=== PATIENT | female | born 1955 | race Caucasian/White ===

== ENCOUNTER 2023-06-29 11:54 | Emergency (ER) | payer MEDICARE, OTHER, SELFPAY ==
[2023-06-29] VITALS (7 sets, daily range): BP systolic 94–129; BP diastolic 55–84; BMI 31.1
[2023-06-29 12:35] LABS: % Basophils 0.3 % (0-2); % Immature Granulocytes 0.3 % (0-0.5); % Lymphocytes 5.3 % (20.5-51.1); % Monocytes 8.3 % (1.7-9.3); % Neutrophils 85.8 % (42.2-75.2); Absolute Lymphocytes 0.4 10^3/uL (1.2-3.4); Absolute Monocytes 0.6 10^3/uL (0.1-0.6); Absolute Neutrophils 6.6 10^3/uL (1.4-6.5); Hemoglobin 15.6 g/dL (12.0-16.0); Mean Corp Hgb Conc. 36.3 g/dL (33.0-37.0); Mean Corpuscular Volume 88.3 fL (81.0-99.0); Mean Platelet Volume 10.7 fL (7.4-10.4); Nucleated Red Blood Cells % 0 %; Platelet Count 165 10^3/uL (130-400); Red Blood Cell Count 4.87 10^6/uL (4.20-5.40); Red Cell Dist. Width 14.2 % (11.5-14.5); White Blood Cell Count 7.7 10^3/uL (4.8-10.8)
[2023-06-29 12:53] LABS: ALT (SGPT) 33 U/L (0-35); AST (SGOT) 38 U/L (14-36); Albumin 4.4 g/dl (3.5-5.0); Alkaline Phosphatase 66 U/L (38-126); Blood Urea Nitrogen 33 mg/dl (7-17); Calcium 9.1 mg/dl (8.4-10.2); Carbon Dioxide 20 mmol/L (22-30); Chloride 105 mmol/L (98-107); Glucose 113 mg/dl (70-99); Lipase 44 U/L (23-300); Potassium 4.1 mmol/L (3.5-5.1); Sodium 133 mmol/L (135-145); Total Protein 7.4 g/dl (6.3-8.2); eGFR > 60.00
[2023-06-29] MEDS: NSS 1000 IV ×2 (13:39→16:09)
[2023-06-29] MEDS: ZOFRAN 4 MG IV (15:23)
--- NOTE | 2023-06-29 16:03 | ED.GENMED ---
History of Present Illness
General
Chief Complaint: Abdominal Symptoms
Source: patient and spouse
Time Seen by Provider: 06/29/23 13:20
Travel History
Have you had any contact with someone who has COVID-19?: No
Do you have any symptoms of coronavirus? Fever > 100 degrees, chills, cough, shortness of breath, sore throat, loss of taste or smell, muscle aches, or headache?: No
History of Present Illness
History of Present Illness:
24 plus hours of recurrent vomiting/diarrhea. no abd pain. low grade fever the day before. no fever the morning of ED evaluation. No blood or mucus. Feels different than her UC. No unusual food,travel, or recent antibiotics.
Past History
Past History
ED Past Medical History: Other (ezcema, ulcers colitis)
ED Past Surgical History: None
Social History
Tobacco: Non-smoker
Alcohol: None
Drug: None
Personal:
Living: with family
Employment: Employed (RN here)
Family History
Family History: Other and Unable to obtain
Review of Systems
Review of Systems
Constitutional: Reports fever
Cardiac: Reports no symptoms
Phy Exam
Physical Exam
Physical Exam:
alert ox3
NAD
warm dry
lungs clear
heart rrr neg M
abdomen soft BS present NT
ext warm dry. perfusing well
Course
Orders/Labs/Results
Orders:
Orders
06/29/23 12:27
Complete Blood Count/With Diff Urgent
Comprehensive Metabolic Panel Urgent
Erythrocyte Sed Rate Urgent
Comment: ADD ON
Lipase Urgent
06/29/23 13:33
0.9% Sodium Chloride 1000 ml [Nss] 1,000 ml IV BOLUS
06/29/23 14:42
EKG [Electrocardiogram (*1)] Urgent
Reason for Study: QTc Monitoring
EKG- Treatment ONCE
06/29/23 14:54
Add On- LAB Urgent
Tests Added?: crp/esr
06/29/23 15:03
Calprotectin, Fecal [S] Urgent
Date Specimen was Collected: 06/29/23
Time Specimen was Collected: 14:55
STOOL [C difficile Antigen & Toxins] Urgent
AMBREEN Source: Feces/Stool
Specimen Description:
Date Specimen was Collected: 06/29/23
Time Specimen was Collected: 14:55
Stool Culture Urgent
AMBREEN Source: Feces/Stool
Specimen Description:
Date Specimen was Collected: 06/29/23
Time Specimen was Collected: 14:55
06/29/23 15:06
Ondansetron Injectable [Zofran] 4 mg IV NOW STA
06/29/23 16:06
0.9% Sodium Chloride 1000 ml [Nss] 1,000 ml IV BOLUS
06/29/23 16:19
C-Reactive Protein Urgent
Comment: COLLECT. CANNOT ADD. INSTRUMENT PROBLEMS.
Abnormal Lab Results
06/29/23 06/29/23
12:27 16:19
MCH 32.0 H pg
(27.0-31.0)
MPV 10.7 H fL
(7.4-10.4)
Absolute Neuts (auto) 6.6 H 10^3/uL
(1.4-6.5)
Absolute Lymphs (auto) 0.4 L 10^3/uL
(1.2-3.4)
Neutrophils % 85.8 H %
(42.2-75.2)
Lymphocytes % 5.3 L %
(20.5-51.1)
Sodium 133 L mmol/L
(135-145)
Carbon Dioxide 20 L mmol/L
(22-30)
BUN 33 H mg/dl
(7-17)
Glucose 113 H mg/dl
(70-99)
AST 38 H U/L
(14-36)
C-Reactive Protein 51.50 H mg/L
(0.0-10.00)
06/29/23 12:27
06/29/23 12:27
Vital Signs
Initial and Last Documented VS:
Initial Vital Signs
Temp Pulse Resp BP Pulse Ox
98.6 F 86 16 124/84 98
06/29/23 12:15 06/29/23 12:15 06/29/23 12:15 06/29/23 12:15 06/29/23 12:15
Last Documented Vital Signs
Temp Pulse Resp BP Pulse Ox
98.6 F 67 15 105/60 95
06/29/23 12:15 06/29/23 18:50 06/29/23 18:50 06/29/23 18:00 06/29/23 18:50
MDM/Problems Addressed
Differential Diagnosis Includes:
care reviewed with GI. they asked for esr/crp and are aware of results. Prior to d/c patient felt well, was keeping liguids down and nontxoc. offered admission but pt. comfortable with OP f/u.
*Radiology
Radiology exam reviewed: radiology read reviewed
*Pulse Oximetry
Patient hypoxic: no
*EKG
Interpretation: abnormal
Comparison EKG: no comparison EKG present
Heart Rate: 65
Rate: normal
Rhythm: sinus
[place]: left axis deviation
QRS Pattern: poor R-wave progression
Ischemia: T-wave inversion
*Critical Care Note
Total Time (30-74mins, 75-104mins- exclusive of procedures): Not Applicable
ED Attending Note
-
Portions of this chart may have been created with voice recognition software.� Occasional wrong word or��sound alike� substitutions may have occurred due to the inherent limitations of voice recognition software.
Discharge Plan
Departure
Patient Disposition: Home (Routine Discharge)
Date of Disposition: 06/29/23
Time of Disposition: 18:45
Patient with high blood pressure during this ER visit?: No
Condition: Good
Discharge Problem:
Enteritis, History of colitis
Instructions: Diarrhea in adolescents and adults, Constipation, Adult (DC), Nausea and Vomiting, Adult (DC)
Prescriptions:
New
ondansetron 4 mg tablet,disintegrating
4 mg PO TIDPRN PRN (Reason: nausea/vomiting) Qty: 14 0RF
No Action
cholecalciferol (vitamin D3) [Vitamin D3] 1,000 UNIT capsule
1,000 unit PO DAILY
mesalamine [Lialda] 1.2 GM tablet,delayed release (DR/EC)
4 tab PO HS
escitalopram oxalate 5 MG tablet
5 mg PO HS
acetaminophen [Tylenol Extra Strength] 500 MG tablet
500 mg PO Q4HPRN PRN (Reason: PRE TREATMENT)
famotidine [Pepcid] 20 mg Tablet
20 mg PO HS
prednisone 20 mg Tablet
20 mg PO DAILY
Benefiber (wheat dextrin) 1 gram Tablet
1 g PO DAILY
Referrals:
Shannan Boggs MD [Active] - Follow up in 5-7 days
Tiana Davis MD [Family Provider] - Follow up in 2-3 days
Activity Restrictions/Additional Instructions:
Light diet the next 1 to 2 days
Zofran as needed for nausea
Recheck if symptoms have not resolved in 1 to 2 days, increase symptoms, abdominal pain, fever, bloody stool or any other concerning symptoms
Interventions
Interventions:
*Risk Screen - Suicide Last Done: 06/29/23 13:38
*General Assessment Last Done: 06/29/23 13:38
*Neglect/Abuse Screening Last Done: 06/29/23 13:38
ED- Fall Risk Assessment Last Done: 06/29/23 13:38
*ED COVID-19 Vaccine History Last Done: 06/29/23 12:15
*Nursing Disposition Last Done: 06/29/23 18:54
WN-Sfakos-Ecigggcekq Assessment Last Done: 06/29/23 13:38
Discharge Date and Time
Discharge Date/Time: 06/29/23 18:54
[2023-06-29 16:56] LABS: Erythrocyte Sed Rate 11 mm/hour (0-20)
[2023-07-02 21:02] LABS: Calprotectin, Fecal 494 ug/g (<=49)
== END 2023-06-29 18:54 | disposition home or self-care (01) ==
LOC: EMR 11:54
PROVIDERS: Emergency Medicine; EMERGENCY PHYSICIAN Emergency Medicine; FAMILY PHYSICIAN Internal Medicine
DX: K52.9 Noninfective gastroenteritis and colitis, unspecified (principal)
CPT/HCPCS: 99283; 96374; 96361; 80053; 83690; 83993; 85025; 85652; 86140; 87045; 87046; 87077; 87324; 87427; 87449; 93005

== ENCOUNTER → 2023-08-14 10:47 | Outpatient (REF) | payer MEDICARE, OTHER, SELFPAY ==
[2023-08-14 12:09] LABS: % Basophils 0.9 % (0-2); % Immature Granulocytes 0.2 % (0-0.5); % Lymphocytes 28.2 % (20.5-51.1); % Neutrophils 59.7 % (42.2-75.2); Absolute Basophils 0.1 10^3/uL (0-0.2); Absolute Eosinophils 0.1 10^3/uL (0-0.7); Absolute Lymphocytes 1.6 10^3/uL (1.2-3.4); Absolute Monocytes 0.6 10^3/uL (0.1-0.6); Absolute Neutrophils 3.5 10^3/uL (1.4-6.5); Hematocrit 39.9 % (37.0-47.0); Hemoglobin 13.8 g/dL (12.0-16.0); Mean Corp Hgb Conc. 34.6 g/dL (33.0-37.0); Mean Corpuscular Hgb 31.7 pg (27.0-31.0); Mean Corpuscular Volume 91.7 fL (81.0-99.0); Mean Platelet Volume 10.8 fL (7.4-10.4); Nucleated Red Blood Cells % 0 %; Platelet Count 229 10^3/uL (130-400); Red Blood Cell Count 4.35 10^6/uL (4.20-5.40); Red Cell Dist. Width 14.2 % (11.5-14.5); White Blood Cell Count 5.8 10^3/uL (4.8-10.8)
[2023-08-14 12:16] LABS: Erythrocyte Sed Rate 22 mm/hour (0-20)
[2023-08-14 12:47] LABS: CRP, Highly Sensitive 1.75 mg/L
[2023-08-14 12:51] LABS: ALT (SGPT) 34 U/L (0-35); AST (SGOT) 33 U/L (14-36); Albumin 4.3 g/dl (3.5-5.0); Alkaline Phosphatase 68 U/L (38-126); Blood Urea Nitrogen 26 mg/dl (7-17); Calcium 9.6 mg/dl (8.4-10.2); Carbon Dioxide 27 mmol/L (22-30); Chloride 106 mmol/L (98-107); Glucose 82 mg/dl (70-99); HDL Cholesterol 62 mg/dl; LDL Cholesterol, Calculated 184 mg/dl; Potassium 4.4 mmol/L (3.5-5.1); Sodium 138 mmol/L (135-145); Total Bilirubin 0.7 mg/dl (0.2-1.3); Total Cholesterol 287 mg/dl (50-199); Triglyceride 207 mg/dl (10-149); Very Low Density Lipoprotein 41 mg/dl (0-30); eGFR > 60.00
[2023-08-14 12:59] LABS: Vitamin D, 25-OH*** 41.2 ng/mL (30-80)
[2023-08-14 13:13] LABS: TSH Reflex To Free T4 0.87 uIU/ml (0.47-4.68)
== END ==
LOC: REG 10:47
PROVIDERS: ATTENDING PHYSICIAN Internal Medicine Rheumatology; FAMILY PHYSICIAN Internal Medicine; REFERRING PHYSICIAN Internal Medicine Gastroenterology
DX: D47.2 Monoclonal gammopathy (principal); E55.9 Vitamin D deficiency, unspecified; K51.90 Ulcerative colitis, unspecified, without complications; M06.00 Rheumatoid arthritis without rheumatoid factor, unspecified site; M07.60 Enteropathic arthropathies, unspecified site; M25.462 Effusion, left knee; M25.562 Pain in left knee; M35.3 Polymyalgia rheumatica; M85.80 Other specified disorders of bone density and structure, unspecified site; S83.207S Unspecified tear of unspecified meniscus, current injury, left knee, sequela; Z68.31 Body mass index [BMI] 31.0-31.9, adult; Z79.899 Other long term (current) drug therapy; E78.00 Pure hypercholesterolemia, unspecified; R53.83 Other fatigue; Z51.81 Encounter for therapeutic drug level monitoring
CPT/HCPCS: 36415; 80053; 80061; 82306; 84443; 85025; 85652; 86141

== ENCOUNTER → 2023-09-17 10:42 | Outpatient (REF) | payer MEDICARE, OTHER, SELFPAY | LOC: RAD 10:42 | PROVIDERS: ATTENDING PHYSICIAN Internal Medicine | DX: E78.00 Pure hypercholesterolemia, unspecified (principal) | CPT/HCPCS: 75571; 83993 ==

== ENCOUNTER → 2023-11-09 07:38 | Outpatient (REF) | payer MEDICARE, OTHER, SELFPAY ==
[2023-11-09 08:58] LABS: % Basophils 1.1 % (0-2); % Eosinophils 2.3 % (0-6); % Immature Granulocytes 0.3 % (0-0.5); % Lymphocytes 19.1 % (20.5-51.1); % Monocytes 10.6 % (1.7-9.3); % Neutrophils 66.6 % (42.2-75.2); Absolute Basophils 0.1 10^3/uL (0-0.2); Absolute Eosinophils 0.2 10^3/uL (0-0.7); Absolute Lymphocytes 1.3 10^3/uL (1.2-3.4); Absolute Monocytes 0.7 10^3/uL (0.1-0.6); Absolute Neutrophils 4.4 10^3/uL (1.4-6.5); Hematocrit 38.2 % (37.0-47.0); Hemoglobin 13.1 g/dL (12.0-16.0); Mean Corp Hgb Conc. 34.3 g/dL (33.0-37.0); Mean Corpuscular Hgb 31.3 pg (27.0-31.0); Mean Corpuscular Volume 91.4 fL (81.0-99.0); Mean Platelet Volume 11.1 fL (7.4-10.4); Nucleated Red Blood Cells % 0 %; Platelet Count 215 10^3/uL (130-400); Red Blood Cell Count 4.18 10^6/uL (4.20-5.40); Red Cell Dist. Width 12.9 % (11.5-14.5); White Blood Cell Count 6.6 10^3/uL (4.8-10.8)
[2023-11-09 09:30] LABS: AST (SGOT) 28 U/L (14-36); Albumin 4.2 g/dl (3.5-5.0); Blood Urea Nitrogen 28 mg/dl (7-17); Calcium 9.5 mg/dl (8.4-10.2); Carbon Dioxide 27 mmol/L (22-30); Chloride 106 mmol/L (98-107); Glucose 86 mg/dl (70-99); Potassium 4.4 mmol/L (3.5-5.1); Sodium 140 mmol/L (135-145); Total Bilirubin 0.7 mg/dl (0.2-1.3); Total Protein 6.7 g/dl (6.3-8.2); eGFR > 60.00
[2023-11-09 09:40] LABS: ALT (SGPT) 26 U/L (0-35); Alkaline Phosphatase 80 U/L (38-126); Iron 76 ug/dl (37-170); Percent Saturation 27 % (20-50); Total Iron Binding Capacity 280 ug/dl (265-497)
[2023-11-09 10:23] LABS: Erythrocyte Sed Rate 33 mm/hour (0-20)
[2023-11-11 11:08] LABS: Albumin 4.18 g/dL (3.75-5.01); Alpha 1 Globulin 0.25 g/dL (0.19-0.46); Alpha 2 Globulin 0.69 g/dL (0.48-1.05); Free Kappa Light Chains,Quant 26.25 mg/L (3.30-19.40); Free Lambda Light Chains,Quant 11.07 mg/L (5.71-26.30); IgA 102 mg/dL (68-408); IgG 804 mg/dL (768-1632); IgM 435 mg/dL (35-263); Immunofixation Electrophoresis IFE Done; Kappa/Lambda Fr Light Ratio 2.37 (0.26-1.65); Total Protein-Electrophoresis 6.8 g/dL (6.3-8.2)
== END ==
LOC: REG 07:38
PROVIDERS: ATTENDING PHYSICIAN Internal Medicine Hematology & Oncology; FAMILY PHYSICIAN Internal Medicine Rheumatology; OTHER PHYSICIAN Internal Medicine Gastroenterology; REFERRING PHYSICIAN Internal Medicine
DX: K51.90 Ulcerative colitis, unspecified, without complications (principal); M06.00 Rheumatoid arthritis without rheumatoid factor, unspecified site; M35.3 Polymyalgia rheumatica; D47.2 Monoclonal gammopathy; D50.9 Iron deficiency anemia, unspecified
CPT/HCPCS: 36415; 80053; 82728; 82784; 83521; 83540; 83550; 84155; 84165; 85025; 85652; 86140; 86334

== ENCOUNTER → 2023-11-20 15:41 | Outpatient (REF) | payer MEDICARE, OTHER, SELFPAY | LOC: REG 15:41 | PROVIDERS: ATTENDING PHYSICIAN Internal Medicine Gastroenterology; FAMILY PHYSICIAN Internal Medicine; REFERRING PHYSICIAN Internal Medicine Rheumatology | DX: K51.90 Ulcerative colitis, unspecified, without complications (principal) | CPT/HCPCS: 83993; 87045; 87046; 87324; 87328; 87329; 87427; 87449; 89055 ==

== ENCOUNTER → 2023-11-25 13:32 | Day surgery (SDC) | payer MEDICARE, OTHER, SELFPAY | LOC: GI 13:32 | PROVIDERS: ATTENDING PHYSICIAN Internal Medicine Gastroenterology | DX: R19.7 Diarrhea, unspecified (principal); K64.8 Other hemorrhoids; K51.50 Left sided colitis without complications | CPT/HCPCS: 45331; 88305 ==

== ENCOUNTER → 2024-03-12 10:02 | Outpatient (REF) | payer MEDICARE, OTHER, SELFPAY ==
[2024-03-12 11:04] LABS: % Basophils 0.7 % (0-2); % Eosinophils 0.4 % (0-6); % Immature Granulocytes 0.3 % (0-0.5); % Lymphocytes 16.9 % (20.5-51.1); % Monocytes 6.9 % (1.7-9.3); % Neutrophils 74.8 % (42.2-75.2); Absolute Basophils 0.1 10^3/uL (0-0.2); Absolute Lymphocytes 1.1 10^3/uL (1.2-3.4); Absolute Monocytes 0.5 10^3/uL (0.1-0.6); Hematocrit 38.2 % (37.0-47.0); Hemoglobin 12.8 g/dL (12.0-16.0); Mean Corp Hgb Conc. 33.5 g/dL (33.0-37.0); Mean Corpuscular Volume 92.5 fL (81.0-99.0); Mean Platelet Volume 10.7 fL (7.4-10.4); Nucleated Red Blood Cells % 0 %; Platelet Count 219 10^3/uL (130-400); Red Blood Cell Count 4.13 10^6/uL (4.20-5.40); Red Cell Dist. Width 13.8 % (11.5-14.5); White Blood Cell Count 6.7 10^3/uL (4.8-10.8)
[2024-03-12 11:17] LABS: Erythrocyte Sed Rate 23 mm/hour (0-20)
[2024-03-12 11:27] LABS: ALT (SGPT) 32 U/L (0-35); AST (SGOT) 37 U/L (14-36); Albumin 4.1 g/dl (3.5-5.0); Alkaline Phosphatase 61 U/L (38-126); Blood Urea Nitrogen 24 mg/dl (7-17); Calcium 9.4 mg/dl (8.4-10.2); Carbon Dioxide 31 mmol/L (22-30); Chloride 104 mmol/L (98-107); Glucose 83 mg/dl (70-99); Iron 130 ug/dl (37-170); Potassium 4.5 mmol/L (3.5-5.1); Sodium 143 mmol/L (135-145); Total Bilirubin 0.5 mg/dl (0.2-1.3); Total Protein 6.4 g/dl (6.3-8.2); eGFR > 60.00
[2024-03-12 11:30] LABS: C-Reactive Protein < 5.00 mg/L (0.0-10.00)
[2024-03-12 11:36] LABS: Percent Saturation 47 % (20-50); Total Iron Binding Capacity 274 ug/dl (265-497)
[2024-03-14 08:57] LABS: Quantiferon NIL 0.02 IU/mL; Quantiferon TB Gold Plus Negative (Negative)
[2024-03-14 18:24] LABS: Hepatitis B Surface Antigen Negative (Negative)
[2024-03-14 18:42] LABS: Hepatitis B Core Ab, Total Negative (Negative); Hepatitis B Surface Antibody Negative
== END ==
LOC: REG 10:02
PROVIDERS: ATTENDING PHYSICIAN Internal Medicine Rheumatology; FAMILY PHYSICIAN Internal Medicine; OTHER PHYSICIAN Family Medicine; OTHER PHYSICIAN Internal Medicine Gastroenterology; REFERRING PHYSICIAN Internal Medicine Gastroenterology
DX: D47.2 Monoclonal gammopathy (principal); E55.9 Vitamin D deficiency, unspecified; K51.90 Ulcerative colitis, unspecified, without complications; M06.00 Rheumatoid arthritis without rheumatoid factor, unspecified site; M07.60 Enteropathic arthropathies, unspecified site; M25.462 Effusion, left knee; M25.562 Pain in left knee; M35.3 Polymyalgia rheumatica; M81.0 Age-related osteoporosis without current pathological fracture; M85.80 Other specified disorders of bone density and structure, unspecified site; S83.207S Unspecified tear of unspecified meniscus, current injury, left knee, sequela; Z13.820 Encounter for screening for osteoporosis; Z68.31 Body mass index [BMI] 31.0-31.9, adult; Z79.899 Other long term (current) drug therapy; K51.00 Ulcerative (chronic) pancolitis without complications; Z11.59 Encounter for screening for other viral diseases
CPT/HCPCS: 80053; 82306; 82728; 83540; 83550; 85025; 85652; 86140; 86480; 86704; 86706; 87340

== ENCOUNTER → 2024-03-14 12:15 | Outpatient (REF) | payer MEDICARE, OTHER, SELFPAY ==
[2024-03-17 06:28] LABS: Calprotectin, Fecal 90 ug/g (<=49)
== END ==
LOC: REG 12:15
PROVIDERS: ATTENDING PHYSICIAN Internal Medicine Gastroenterology; FAMILY PHYSICIAN Internal Medicine; OTHER PHYSICIAN Family Medicine; REFERRING PHYSICIAN Internal Medicine Gastroenterology
DX: K51.90 Ulcerative colitis, unspecified, without complications (principal)
CPT/HCPCS: 83993

== ENCOUNTER → 2024-04-11 14:21 | Outpatient (REF) | payer MEDICARE, OTHER, SELFPAY | LOC: WDC 14:21 | PROVIDERS: ATTENDING PHYSICIAN Internal Medicine | DX: M81.0 Age-related osteoporosis without current pathological fracture (principal); Z13.820 Encounter for screening for osteoporosis; Z12.31 Encounter for screening mammogram for malignant neoplasm of breast | CPT/HCPCS: 77063; 77067; 77080 ==

== ENCOUNTER → 2024-04-14 08:53 | Outpatient (REF) | payer MEDICARE, OTHER, SELFPAY | LOC: REG 08:53 | PROVIDERS: ATTENDING PHYSICIAN Internal Medicine Gastroenterology; FAMILY PHYSICIAN Internal Medicine Rheumatology | DX: K51.90 Ulcerative colitis, unspecified, without complications (principal) | CPT/HCPCS: 83993 ==

== ENCOUNTER → 2024-08-18 12:11 | Outpatient (REF) | payer MEDICARE, OTHER, SELFPAY ==
[2024-08-18 13:28] LABS: % Basophils 0.5 % (0-2); % Eosinophils 0.5 % (0-6); % Immature Granulocytes 0.4 % (0-0.5); % Lymphocytes 17.4 % (20.5-51.1); % Monocytes 11.6 % (1.7-9.3); % Neutrophils 69.6 % (42.2-75.2); Absolute Monocytes 0.6 10^3/uL (0.1-0.6); Absolute Neutrophils 3.8 10^3/uL (1.4-6.5); Hematocrit 39.5 % (37.0-47.0); Mean Corp Hgb Conc. 32.9 g/dL (33.0-37.0); Mean Corpuscular Hgb 30.2 pg (27.0-31.0); Mean Corpuscular Volume 91.9 fL (81.0-99.0); Mean Platelet Volume 10.8 fL (7.4-10.4); Nucleated Red Blood Cells % 0 %; Platelet Count 206 10^3/uL (130-400); Red Cell Dist. Width 14.1 % (11.5-14.5); White Blood Cell Count 5.5 10^3/uL (4.8-10.8)
[2024-08-18 13:42] LABS: Erythrocyte Sed Rate 46 mm/hour (0-20)
[2024-08-18 14:32] LABS: ALT (SGPT) 35 U/L (0-35); AST (SGOT) 31 U/L (14-36); Albumin 4.4 g/dl (3.5-5.0); Alkaline Phosphatase 86 U/L (38-126); Blood Urea Nitrogen 32 mg/dl (7-17); Calcium 9.4 mg/dl (8.4-10.2); Carbon Dioxide 28 mmol/L (22-30); Chloride 105 mmol/L (98-107); Glucose 90 mg/dl (70-99); Iron 77 ug/dl (37-170); Potassium 4.7 mmol/L (3.5-5.1); Sodium 142 mmol/L (135-145); Total Bilirubin 0.7 mg/dl (0.2-1.3); eGFR > 60.00
[2024-08-18 14:41] LABS: Percent Saturation 26 % (20-50); Total Iron Binding Capacity 294 ug/dl (265-497)
== END ==
LOC: REG 12:11
PROVIDERS: ATTENDING PHYSICIAN Internal Medicine Rheumatology; FAMILY PHYSICIAN Internal Medicine; REFERRING PHYSICIAN Internal Medicine Gastroenterology
DX: K51.90 Ulcerative colitis, unspecified, without complications (principal); D47.2 Monoclonal gammopathy; E55.9 Vitamin D deficiency, unspecified; M07.60 Enteropathic arthropathies, unspecified site; M25.462 Effusion, left knee; M25.562 Pain in left knee; M35.3 Polymyalgia rheumatica; M81.0 Age-related osteoporosis without current pathological fracture; M85.80 Other specified disorders of bone density and structure, unspecified site; S83.207S Unspecified tear of unspecified meniscus, current injury, left knee, sequela; Z13.820 Encounter for screening for osteoporosis; Z79.899 Other long term (current) drug therapy
CPT/HCPCS: 36415; 80053; 82728; 83540; 83550; 85025; 85652; 86140

== ENCOUNTER → 2024-09-15 09:53 | Outpatient (REF) | payer MEDICARE, OTHER, SELFPAY ==
[2024-09-15 10:58] LABS: % Basophils 0.6 % (0-2); % Eosinophils 0.8 % (0-6); % Immature Granulocytes 0.4 % (0-0.5); % Lymphocytes 20.8 % (20.5-51.1); % Monocytes 10.1 % (1.7-9.3); % Neutrophils 67.3 % (42.2-75.2); Absolute Basophils 0.1 10^3/uL (0-0.2); Absolute Eosinophils 0.1 10^3/uL (0-0.7); Absolute Lymphocytes 1.6 10^3/uL (1.2-3.4); Absolute Monocytes 0.8 10^3/uL (0.1-0.6); Absolute Neutrophils 5.2 10^3/uL (1.4-6.5); Hematocrit 41.9 % (37.0-47.0); Hemoglobin 13.6 g/dL (12.0-16.0); Mean Corp Hgb Conc. 32.5 g/dL (33.0-37.0); Mean Corpuscular Hgb 30.8 pg (27.0-31.0); Mean Corpuscular Volume 94.8 fL (81.0-99.0); Nucleated Red Blood Cells % 0 %; Platelet Count 183 10^3/uL (130-400); Red Blood Cell Count 4.42 10^6/uL (4.20-5.40); White Blood Cell Count 7.8 10^3/uL (4.8-10.8)
[2024-09-15 11:15] LABS: Erythrocyte Sed Rate 27 mm/hour (0-20)
[2024-09-15 11:59] LABS: ALT (SGPT) 29 U/L (0-35); AST (SGOT) 25 U/L (14-36); Albumin 4.4 g/dl (3.5-5.0); Alkaline Phosphatase 60 U/L (38-126); Direct Bilirubin 0.1 mg/dl (0.0-0.4); Total Bilirubin 0.6 mg/dl (0.2-1.3)
== END ==
LOC: REG 09:53
PROVIDERS: ATTENDING PHYSICIAN Internal Medicine Rheumatology; FAMILY PHYSICIAN Internal Medicine; OTHER PHYSICIAN Internal Medicine Gastroenterology
DX: D47.2 Monoclonal gammopathy (principal); E55.9 Vitamin D deficiency, unspecified; K51.90 Ulcerative colitis, unspecified, without complications; M06.00 Rheumatoid arthritis without rheumatoid factor, unspecified site; M07.60 Enteropathic arthropathies, unspecified site; M25.462 Effusion, left knee; M35.3 Polymyalgia rheumatica; M81.0 Age-related osteoporosis without current pathological fracture; M85.80 Other specified disorders of bone density and structure, unspecified site; S83.207S Unspecified tear of unspecified meniscus, current injury, left knee, sequela; Z13.820 Encounter for screening for osteoporosis; Z79.899 Other long term (current) drug therapy
CPT/HCPCS: 36415; 80076; 85025; 85652; 86140

== ENCOUNTER → 2024-11-02 10:53 | Outpatient (REF) | payer MEDICARE, OTHER, SELFPAY ==
[2024-11-02 11:33] LABS: Hematocrit 39.5 % (37.0-47.0); Hemoglobin 12.9 g/dL (12.0-16.0); Mean Corp Hgb Conc. 32.7 g/dL (33.0-37.0); Mean Corpuscular Volume 94.7 fL (81.0-99.0); Nucleated Red Blood Cells % 0 %; Platelet Count 219 10^3/uL (130-400); Red Cell Dist. Width 14.7 % (11.5-14.5)
[2024-11-02 12:11] LABS: ALT (SGPT) 22 U/L (0-35); AST (SGOT) 24 U/L (14-36); Albumin 4.2 g/dl (3.5-5.0); Alkaline Phosphatase 54 U/L (38-126); Blood Urea Nitrogen 37 mg/dl (7-17); Calcium 9.3 mg/dl (8.4-10.2); Carbon Dioxide 27 mmol/L (22-30); Chloride 109 mmol/L (98-107); Glucose 83 mg/dl (70-99); Iron 82 ug/dl (37-170); Potassium 5.0 mmol/L (3.5-5.1); Sodium 139 mmol/L (135-145); Total Protein 6.9 g/dl (6.3-8.2); eGFR > 60.00
[2024-11-02 12:21] LABS: Total Iron Binding Capacity 303 ug/dl (265-497)
[2024-11-02 12:35] LABS: Ferritin 116.0 ng/ml (11.1-264.0)
== END ==
LOC: REG 10:53
PROVIDERS: ATTENDING PHYSICIAN Internal Medicine Hematology & Oncology; FAMILY PHYSICIAN Internal Medicine; OTHER PHYSICIAN Internal Medicine Gastroenterology; REFERRING PHYSICIAN Internal Medicine Rheumatology
DX: D47.2 Monoclonal gammopathy (principal); D50.9 Iron deficiency anemia, unspecified
CPT/HCPCS: 36415; 80053; 82728; 82784; 83521; 83540; 83550; 84155; 84165; 85025; 86334

== ENCOUNTER → 2024-12-14 11:17 | Outpatient (REF) | payer MEDICARE, OTHER, SELFPAY ==
[2024-12-14 11:59] LABS: Hematocrit 41.3 % (37.0-47.0); Hemoglobin 13.5 g/dL (12.0-16.0); Mean Corp Hgb Conc. 32.7 g/dL (33.0-37.0); Mean Corpuscular Volume 94.7 fL (81.0-99.0); Nucleated Red Blood Cells % 0 %; Platelet Count 215 10^3/uL (130-400); Red Cell Dist. Width 14.2 % (11.5-14.5)
[2024-12-14 12:22] LABS: ALT (SGPT) 21 U/L (0-35); AST (SGOT) 24 U/L (14-36); Albumin 4.1 g/dl (3.5-5.0); Alkaline Phosphatase 62 U/L (38-126); Blood Urea Nitrogen 25 mg/dl (7-17); Calcium 9.1 mg/dl (8.4-10.2); Carbon Dioxide 30 mmol/L (22-30); Chloride 107 mmol/L (98-107); Glucose 85 mg/dl (70-99); HDL Cholesterol 56 mg/dl; LDL Cholesterol, Calculated 177 mg/dl; Potassium 4.5 mmol/L (3.5-5.1); Sodium 141 mmol/L (135-145); Total Protein 6.7 g/dl (6.3-8.2); Very Low Density Lipoprotein 46 mg/dl (0-30); eGFR > 60.00
[2024-12-14 12:23] LABS: C-Reactive Protein 15.40 mg/L (0.0-10.00)
== END ==
LOC: REG 11:17
PROVIDERS: ATTENDING PHYSICIAN Physician Assistant; FAMILY PHYSICIAN Internal Medicine; OTHER PHYSICIAN Internal Medicine Gastroenterology; OTHER PHYSICIAN Internal Medicine Rheumatology
DX: M06.00 Rheumatoid arthritis without rheumatoid factor, unspecified site (principal); Z51.81 Encounter for therapeutic drug level monitoring; Z87.39 Personal history of other diseases of the musculoskeletal system and connective tissue; Z79.899 Other long term (current) drug therapy; G47.10 Hypersomnia, unspecified; E78.00 Pure hypercholesterolemia, unspecified; E05.90 Thyrotoxicosis, unspecified without thyrotoxic crisis or storm
CPT/HCPCS: 36415; 80053; 80061; 84443; 85025; 86140

== ENCOUNTER 2024-12-16 06:17 | Day surgery (SDC) | payer MEDICARE, OTHER, SELFPAY | END 2024-12-16 10:17 | disposition home or self-care (01) | LOC: GI 06:17 | PROVIDERS: ATTENDING PHYSICIAN Internal Medicine Gastroenterology | DX: Z12.11 Encounter for screening for malignant neoplasm of colon (principal); K51.90 Ulcerative colitis, unspecified, without complications; K57.30 Diverticulosis of large intestine without perforation or abscess without bleeding; K64.8 Other hemorrhoids; Z86.0100 Personal history of colon polyps, unspecified | CPT/HCPCS: 45380; 88305 ==

== ENCOUNTER → 2024-12-27 15:18 | Outpatient (REF) | payer MEDICARE, OTHER, SELFPAY ==
[2024-12-31 23:51] LABS: HPV, High Risk Not Detected; HPV, High Risk Source Cervical
== END ==
LOC: CPAP 15:18
PROVIDERS: ATTENDING PHYSICIAN Internal Medicine
DX: Z12.4 Encounter for screening for malignant neoplasm of cervix (principal)
CPT/HCPCS: 87624

== ENCOUNTER → 2025-04-06 11:56 | Outpatient (REF) | payer MEDICARE, OTHER, SELFPAY ==
[2025-04-06 12:36] LABS: Hematocrit 41.4 % (37.0-47.0); Hemoglobin 13.1 g/dL (12.0-16.0); Mean Corp Hgb Conc. 31.6 g/dL (33.0-37.0); Mean Corpuscular Volume 96.1 fL (81.0-99.0); Nucleated Red Blood Cells % 0 %; Platelet Count 222 10^3/uL (130-400); Red Cell Dist. Width 13.9 % (11.5-14.5)
[2025-04-06 13:22] LABS: ALT (SGPT) 60 U/L (0-35); AST (SGOT) 39 U/L (14-36); Albumin 4.3 g/dl (3.5-5.0); Alkaline Phosphatase 57 U/L (38-126); Blood Urea Nitrogen 24 mg/dl (7-17); Calcium 9.1 mg/dl (8.4-10.2); Carbon Dioxide 29 mmol/L (22-30); Chloride 106 mmol/L (98-107); Glucose 84 mg/dl (70-99); Iron 71 ug/dl (37-170); Potassium 4.6 mmol/L (3.5-5.1); Sodium 138 mmol/L (135-145); Total Protein 7.1 g/dl (6.3-8.2); eGFR > 60.00
[2025-04-06 13:32] LABS: Total Iron Binding Capacity 316 ug/dl (265-497)
[2025-04-06 13:47] LABS: Ferritin 130.0 ng/ml (11.1-264.0)
[2025-04-06 13:52] LABS: C-Reactive Protein 6.10 mg/L (0.0-10.00)
[2025-04-06 13:55] LABS: Vitamin D, 25-OH*** 61.0 ng/mL (30-80)
[2025-04-06 14:18] LABS: Folate 8.9 ng/ml (2.76-20); Vitamin B12 732 pg/ml (239-931)
[2025-04-06 19:12] LABS: Hepatitis B Surface Antigen Negative (Negative)
== END ==
LOC: REG 11:56
PROVIDERS: ATTENDING PHYSICIAN Internal Medicine Rheumatology; FAMILY PHYSICIAN Internal Medicine; OTHER PHYSICIAN Internal Medicine Gastroenterology
DX: K51.90 Ulcerative colitis, unspecified, without complications (principal); D47.2 Monoclonal gammopathy; E55.9 Vitamin D deficiency, unspecified; M07.60 Enteropathic arthropathies, unspecified site; M25.462 Effusion, left knee; M35.3 Polymyalgia rheumatica; M85.80 Other specified disorders of bone density and structure, unspecified site; S83.207S Unspecified tear of unspecified meniscus, current injury, left knee, sequela; Z86.31 Personal history of diabetic foot ulcer; Z79.899 Other long term (current) drug therapy
CPT/HCPCS: 36415; 80053; 82306; 82607; 82728; 82746; 83540; 83550; 85025; 86140; 86480; 86704; 86706; 87340